=== PATIENT | female | born 1965 | race Caucasian/White ===

== ENCOUNTER 2017-08-31 22:25 | Emergency (ER) | payer MEDICARE, MEDICAID ==
[2017-08-31 22:46] VITALS: BP 155/106
[2017-08-31] MEDS ORDERED: fentaNYL 100 MCG/2 ML SDV IVPUSH ONE (23:02)
--- NOTE | 2017-08-31 23:06 | EDM.PDOC ---
ED HPI GENERAL MEDICAL PROBLEM - General Chief Complaint: Abdominal Pain Stated Complaint: LEFT SIDE ABD PAIN Time Seen by Provider: 08/31/17 22:50 Source of Information: Reports: Patient History Limitations: Reports: No Limitations - History of Present Illness INITIAL COMMENTS - FREE TEXT/NARRATIVE: 51-year-old female with a history of gastric bypass surgery, subsequent bowel obstruction one year ago presents with left lower quadrant pain for the past 5 hours. It radiates across the anterior aspect of the abdomen, her back does not hurt. No urinary symptoms, no fevers or chills, no nausea or vomiting but the pain is fairly intense. No diarrhea. Onset: Sudden (Pain started fairly suddenly at around 5 PM, 6 hours ago) Location: Reports: Abdomen Severity: Moderate Improves with: Reports: None Worsens with: Reports: Movement left ABD Pain Score (Numeric/FACES): 7 - Related Data Allergies Allergy/AdvReac Type Severity Reaction Status Date / Time rofecoxib [From Vioxx] Allergy Vomiting Verified 08/31/17 22:43 morphine AdvReac Drowsiness Verified 08/31/17 22:43 Home Meds: Home Meds Albuterol Sulfate [Proair Hfa] 2 puff IH Q6H PRN 05/14/16 [History] Dextroamphetamine/Amphetamine [Adderall Xr 30 mg Capsule] 30 mg PO BID 05/14/16 [History] Fluticasone Propionate [Flonase] 2 spray PARTH DAILY PRN 05/14/16 [History] Gabapentin [Neurontin] 100 mg PO BID 05/14/16 [History] Loratadine [Claritin] 10 mg PO DAILY PRN 05/14/16 [History] Multivitamin with Minerals [Multiple Vitamin] 1 tab PO DAILY 05/14/16 [History] Vitamin B Complex [B Complex] 1 tab PO DAILY 05/14/16 [History] buPROPion [Wellbutrin XL] 300 mg PO DAILY 05/14/16 [History] Past Medical History HEENT History: Reports: Allergic Rhinitis, Impaired Vision, Otitis Media Cardiovascular History: Reports: None Respiratory History: Reports: Asthma Gastrointestinal History: Reports: Bowel Obstruction Genitourinary History: Reports: UTI, Recurrent 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: Polycystic Ovaries, Musculoskeletal History: Reports: Arthritis Neurological History: Reports: None Psychiatric History: Reports: ADD, ADHD, Anxiety, Depression Endocrine/Metabolic History: Reports: Obesity/BMI 30+ Other Endocrine/Metabolic History: PT STATES SHE IS BORDERLINE DIABETIC Hematologic History: Reports: B12 Deficiency Immunologic History: Reports: None Oncologic (Cancer) History: Reports: None Dermatologic History: Reports: None Other Dermatologic History: 2 SKIN LESIONS ON BACK - Infectious Disease History Infectious Disease History: Reports: Chicken Pox - Past Surgical History HEENT Surgical History: Reports: Myringotomy w Tube(s) Cardiovascular Surgical History: Reports: None GI Surgical History: Reports: Appendectomy, Bariatric Procedure, Cholecystectomy , Colonoscopy, EGD, Hernia Repair/Other, Lysis of Adhesions Female Surgical History: Reports: Hysterectomy, Oophorectomy, Salpingo- Oophorectomy Neurological Surgical History: Reports: Lumbar Spine Musculoskeletal Surgical History: Reports: Shoulder Surgery Oncologic Surgical History: Reports: None Social & Family History - Family History Family Medical History: Noncontributory - Tobacco Use Smoking Status *Q: Never Smoker - Caffeine Use Caffeine Use: Reports: Soda, Tea - Recreational Drug Use Recreational Drug Use: No ED ROS GENERAL - Review of Systems Review Of Systems: See Below Constitutional: Denies: Fever, Chills Respiratory: Denies: Shortness of Breath Cardiovascular: Denies: Chest Pain GI/Abdominal: Reports: Abdominal Pain. Denies: Diarrhea, Nausea, Vomiting : Reports: No Symptoms Skin: Reports: No Symptoms Neurological: Reports: No Symptoms. Denies: Headache ED EXAM, GI/ABD - Physical Exam Exam: See Below Exam Limited By: No Limitations General Appearance: Alert, Moderate Distress (Patient is fairly uncomfortable, unable to sit still) Eyes: Bilateral: Normal Appearance (No jaundice) Respiratory/Chest: No Respiratory Distress, Lungs Clear Cardiovascular: Regular Rate, Rhythm GI/Abdominal Exam: Soft, Tender (Reacts with fairly significant tenderness to palpation along the left and lower abdomen) Neurological: Alert Skin Exam: Warm, Dry Course - Vital Signs Last Recorded V/S: Last Vital Signs Temp 98.7 F 08/31/17 22:53 Pulse 86 08/31/17 22:53 Resp 18 08/31/17 22:53 BP 155/106 H 08/31/17 22:53 Pulse Ox 95 08/31/17 22:53 - Orders/Labs/Meds Orders: Active Orders 24 hr Category Date Time Status Abdomen Pelvis w Cont [CT] Stat Exams 09/01/17 00:01 Taken UA W/MICROSCOPIC [URIN] Urgent Lab 08/31/17 23:00 Ordered Labs: Laboratory Tests 08/31/17 08/31/17 08/31/17 Range/Units 23:00 23:15 23:15 WBC 5.3 (4.5-11.0) K/uL RBC 4.28 (3.30-5.50) M/uL Hgb 12.0 (12.0-15.0) g/dL Hct 37.9 (36.0-48.0) % MCV 89 (80-98) fL MCH 28 (27-31) pg MCHC 32 (32-36) % Plt Count 330 (150-400) K/uL Neut % (Auto) 62 (36-66) % Lymph % (Auto) 29 (24-44) % [place] % (Auto) 8 H (2-6) % Eos % (Auto) 1 L (2-4) % Baso % (Auto) 0 (0-1) % Sodium 140 (140-148) mmol/L Potassium 4.0 (3.6-5.2) mmol/L Chloride 104 (100-108) mmol/L Carbon Dioxide 24 (21-32) mmol/L Anion Gap 11.7 (5.0-14.0) mmol/L BUN 13 (7-18) mg/dL Creatinine 0.8 (0.6-1.0) mg/dL Est Cr Clr Drug Dosing 65.80 mL/min Estimated GFR (MDRD) > 60 (>60) Glucose 90 (74-106) mg/dL Calcium 8.3 L (8.5-10.1) mg/dL Lipase 116 (73-393) U/L Urine Color Yellow Urine Appearance Clear Urine pH 6.0 (4.5-8.0) Ur Specific [place] 1.010 (1.008-1.030) Urine Protein Negative (NEGATIVE) mg/dL Urine Glucose (UA) Normal (NEGATIVE) mg/dL Urine Ketones Negative (NEGATIVE) mg/dL Urine Occult Blood Negative (NEGATIVE) Urine Nitrite Negative (NEGATIVE) Urine Bilirubin Negative (NEGATIVE) Urine Urobilinogen Normal (NORMAL) mg/dL Ur Leukocyte Esterase Moderate (NEGATIVE) Urine RBC 0-5 (0-5) Urine WBC 0-5 (0-5) Ur Epithelial Cells Rare Amorphous Sediment Not seen Urine Bacteria Few Urine Mucus Not seen Meds: Medications Discontinued Medications Generic Name Dose Route Start Last Admin Trade Name Estephania PRN Reason Stop Dose Admin Fentanyl 25 mcg 08/31/17 23:02 08/31/17 23:15 Sublimaze IVPUSH 08/31/17 23:03 25 mcg ONETIME ONE Administration Fentanyl 25 mcg 09/01/17 00:47 09/01/17 00:50 Sublimaze IVPUSH 09/01/17 00:48 25 mcg ONETIME ONE Administration Sodium Chloride 1,000 mls @ 500 mls/hr 08/31/17 23:15 08/31/17 23:20 Normal Saline IV 500 mls/hr ASDIRECTED ABIGAIL Administration Sodium Chloride 82 mls @ 4 mls/sec 09/01/17 00:01 09/01/17 00:09 Normal Saline IV 09/01/17 00:02 4 mls/sec ASDIRECTED STA Administration Iopamidol 140 ml 09/01/17 00:00 09/01/17 00:09 Isovue-300 (61%) IV 09/01/17 00:01 150 ml . DIRECTED STA Administration - Re-Assessments/Exams Free Text/Narrative Re-Assessment/Exam: 08/31/17 23:05 An IV was started, patient was hydrated with normal saline and given 25 g of fentanyl IV. CBC, CMP and lipase were obtained, a CT the abdomen will likely be needed. 09/01/17 00:33 Labs were all normal. The fentanyl helped somewhat with her pain, a CT the abdomen and pelvis was then obtained with IV contrast. 09/01/17 00:39 CT scan showed constipation and intracolonic care but no acute obstruction or inflammatory changes. She was given 1 more 25 g dose of fentanyl and encouraged to increase water intake and consider several doses of MiraLAX over the next 2 days. Departure - Departure Time of Disposition: 01:06 Disposition: Home, Self-Care 01 Condition: Good Clinical Impression: Abdominal pain Qualifiers: Abdominal location: left lower quadrant Qualified Code(s): R10.32 - Left lower quadrant pain Constipation Qualifiers: Constipation type: slow transit constipation Qualified Code(s): K59.01 - Slow transit constipation - Discharge Information Instructions: Constipation, Adult Referrals: PCP,None [Primary Care Provider] - Forms: ED Department Discharge Care Plan Goals: Drink lots of water, try several doses of MiraLAX over the next 1-2 days and advance diet as tolerated. Staying active is also beneficial. Return anytime if worsening, especially increased pain or fever. - My Orders Last 24 Hours: My Active Orders 08/31/17 23:00 UA W/MICROSCOPIC [URIN] Urgent 09/01/17 00:01 Abdomen Pelvis w Cont [CT] Stat - Assessment/Plan Last 24 Hours: My Active Orders 08/31/17 23:00 UA W/MICROSCOPIC [URIN] Urgent 09/01/17 00:01 Abdomen Pelvis w Cont [CT] Stat
[2017-08-31] MEDS ORDERED: Sodium Chloride 0.9% 1,000 ML IV SCH (23:15)
[2017-09-01] MEDS ORDERED: Iopamidol 612 MG/ML 150 ML Bottle IV STA
[2017-09-01] MEDS ORDERED: fentaNYL 100 MCG/2 ML SDV IVPUSH ONE (00:47)
== END 2017-09-01 01:09 | disposition home or self-care (01) ==
LOC: JP.ED 22:25
DX: K59.01 Slow transit constipation (principal); E66.9 Obesity, unspecified; Z88.5 Allergy status to narcotic agent; Z88.8 Allergy status to other drugs, medicaments and biological substances; Z79.899 Other long term (current) drug therapy
CPT/HCPCS: 36415; 74177; 80048; 81001; 83690; 85025; 96361; 96374; 99284-25; J3010; J7030; J7040

== ENCOUNTER 2020-02-17 16:39 | Emergency (ER) | payer MEDICARE, MEDICAID ==
[2020-02-17] MEDS ORDERED: HYDROmorphone 0.5 MG/0.5 ML Syringe IVPUSH ONE (17:27)
[2020-02-17] MEDS ORDERED: Sodium Chloride 0.9% 1,000 ML IV SCH (17:30)
--- NOTE | 2020-02-17 17:40 | EDM.PDOC ---
<Sean Agee - Last Filed: 02/17/20 17:54> ED HPI GENERAL MEDICAL PROBLEM - General Chief Complaint: Abdominal Pain Stated Complaint: STOMACH PAIN Time Seen by Provider: 02/17/20 17:20 Source of Information: Reports: Patient History Limitations: Reports: No Limitations - History of Present Illness INITIAL COMMENTS - FREE TEXT/NARRATIVE: 54-year-old female with a history of gastric bypass has had 1 episode of a small bowel obstruction in the past and she is having similar symptoms. She was evaluated in [place] yesterday, a 2 view abdominal x-ray showed loops of small bowel and air-fluid levels in the CT was recommended but not done. Pain is persistent so she came in to be checked. No fevers or chills. Nausea but no vomiting. Symptoms started 3 days ago with diarrhea, she now feels her abdomen is distended. Onset: Gradual Duration: Day(s): Location: Reports: Abdomen, Back Associated Symptoms: Reports: Loss of Appetite, Malaise. Denies: Confusion, Chest Pain, Cough, Shortness of Breath - Related Data Allergies Allergy/AdvReac Type Severity Reaction Status Date / Time rofecoxib [From Vioxx] Allergy Vomiting Verified 02/17/20 17:03 Home Meds: Home Meds Albuterol Sulfate [Proair Hfa] 2 puff IH Q6H PRN 05/14/16 [History] Dextroamphetamine/Amphetamine [Adderall Xr 30 mg Capsule] 30 mg PO BID 05/14/16 [History] Fluticasone Propionate [Flonase] 2 spray PARTH DAILY PRN 05/14/16 [History] Gabapentin [Neurontin] 100 mg PO BID 05/14/16 [History] Loratadine [Claritin] 10 mg PO DAILY PRN 05/14/16 [History] Multivitamin with Minerals [Multiple Vitamin] 1 tab PO DAILY 05/14/16 [History] Vitamin B Complex [B Complex] 1 tab PO DAILY 05/14/16 [History] buPROPion [Wellbutrin XL] 300 mg PO DAILY 05/14/16 [History] LORazepam [Lorazepam] 1 tab PO TID PRN 02/17/20 [History] Morphine [MS Contin] 1 tab PO BID 02/17/20 [History] Ondansetron [Ondansetron ODT] 1 tab PO TID PRN 02/17/20 [History] Sulfamethoxazole/Trimethoprim [Sulfamethoxazole-Tmp Ds Tablet] 1 tab PO DAILY 02/17/20 [History] oxyCODONE 1 tab PO QID 02/17/20 [History] valACYclovir HCl [Valtrex] 1 tab PO DAILY 02/17/20 [History] Past Medical History HEENT History: Reports: Allergic Rhinitis, Impaired Vision, Otitis Media Cardiovascular History: Reports: None Respiratory History: Reports: Asthma Gastrointestinal History: Reports: Bowel Obstruction Genitourinary History: Reports: UTI, Recurrent 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: Polycystic Ovaries, Musculoskeletal History: Reports: Arthritis Neurological History: Reports: None Psychiatric History: Reports: ADD, ADHD, Anxiety, Depression Endocrine/Metabolic History: Reports: Obesity/BMI 30+ Other Endocrine/Metabolic History: PT STATES SHE IS BORDERLINE DIABETIC Hematologic History: Reports: B12 Deficiency Immunologic History: Reports: None Oncologic (Cancer) History: Reports: None Dermatologic History: Reports: None Other Dermatologic History: 2 SKIN LESIONS ON BACK - Infectious Disease History Infectious Disease History: Reports: Chicken Pox - Past Surgical History Head Surgeries/Procedures: Reports: None HEENT Surgical History: Reports: Myringotomy w Tube(s) Cardiovascular Surgical History: Reports: None GI Surgical History: Reports: Appendectomy, Bariatric Procedure, Cholecystectomy, Colonoscopy, EGD, Hernia Repair/Other, Lysis of Adhesions Female Surgical History: Reports: Hysterectomy, Oophorectomy, Salpingo-Oophorectomy Neurological Surgical History: Reports: Lumbar Spine Musculoskeletal Surgical History: Reports: Shoulder Surgery Oncologic Surgical History: Reports: None Social & Family History - Family History Family Medical History: Noncontributory - Tobacco Use Tobacco Use Status *Q: Never Tobacco User - Caffeine Use Caffeine Use: Reports: Soda, Tea ED ROS GENERAL - Review of Systems Review Of Systems: See Below Constitutional: Reports: Malaise. Denies: Fever, Chills HEENT: Reports: No Symptoms Respiratory: Denies: Shortness of Breath Cardiovascular: Denies: Chest Pain GI/Abdominal: Reports: Abdominal Pain, Diarrhea, Nausea. Denies: Constipation, Vomiting Musculoskeletal: Reports: Back Pain (Chronic and stable) Skin: Reports: No Symptoms Neurological: Reports: No Symptoms Psychiatric: Reports: Anxiety ED EXAM, GI/ABD - Physical Exam Exam: See Below Exam Limited By: No Limitations General Appearance: Alert, No Apparent Distress, Other (Looks somewhat uncomfortable but not distressed) Eyes: Bilateral: Normal Appearance (No jaundice, normal hydration) Head: Atraumatic Respiratory/Chest: No Respiratory Distress, Lungs Clear Cardiovascular: Normal Peripheral Pulses, Regular Rate, Rhythm. No: Tachycardia GI/Abdominal Exam: Normal Bowel Sounds, Soft, Tender (Does react with tenderness with mild guarding especially palpating the central and upper abdomen) Extremities: No: Pedal Edema Neurological: Alert, Oriented Psychiatric: Normal Affect, Normal Mood Skin Exam: Warm, Dry Course - Re-Assessments/Exams Free Text/Narrative Re-Assessment/Exam: 02/17/20 17:43 Reviewed records from yesterday, labs were not repeated. She obviously needs an abdominal CT scan. IV was placed, patient was given 0.5 mg of IV Dilaudid and normal saline started. 02/17/20 17:54 Patient also needed 4 mg of IV Zofran for nausea. Using the labs that were drawn yesterday, patient will get an abdomen pelvis CT with IV enhanced contrast. Care was turned over to Dr. Cardenas pending result. Departure - Departure Disposition: Home, Self-Care 01 Clinical Impression: Functional constipation - Discharge Information Instructions: Constipation, Adult Referrals: PCP,None [Primary Care Provider] - Forms: ED Department Discharge Additional Instructions: Try MiraLAX over the next couple days until loose stool please followup with your primary care provider in 3-5 days if not better, please call return to the emergency department with worsening of symptoms., Sepsis Event Note (ED) - Evaluation Sepsis Screening Result: No Definite Risk <Arash Cardenas - Last Filed: 02/17/20 19:19> Course - Vital Signs Last Recorded V/S: Last Vital Signs Temp 96.4 F L 02/17/20 17:19 Pulse 69 02/17/20 18:26 Resp 16 02/17/20 17:19 BP 134/86 02/17/20 18:26 Pulse Ox 98 02/17/20 18:26 - Orders/Labs/Meds Orders: Active Orders 24 hr Category Date Time Status Iopamidol [Isovue-300 (61%)] Med 02/17/20 18:15 Active 100 ml IV . DIRECTED Sodium Chloride 0.9% [Normal Saline] 1,000 ml Med 02/17/20 17:30 Active IV ASDIRECTED Sodium Chloride 0.9% [Normal Saline] 80 ml Med 02/17/20 18:15 Active IV ASDIRECTED Sodium Chloride 0.9% [Saline Flush] Med 02/17/20 18:03 Active 10 ml FLUSH ASDIRECTED PRN Medication Orders Sodium Chloride (Normal Saline) 1,000 mls @ 500 mls/hr IV ASDIRECTED ABIGAIL Last Admin: 02/17/20 17:50 Dose: 500 mls/hr Documented by: MARC Sodium Chloride (Normal Saline) 80 mls @ 3 mls/sec IV ASDIRECTED ABIGAIL Last Admin: 02/17/20 18:28 Dose: 3 mls/sec Documented by: AURE Iopamidol (Isovue-300 (61%)) 100 ml IV . DIRECTED ABIGAIL Last Admin: 02/17/20 18:29 Dose: 100 ml Documented by: AURE Sodium Chloride (Saline Flush) 10 ml FLUSH ASDIRECTED PRN PRN Reason: Keep Vein Open Last Admin: 02/17/20 18:29 Dose: 10 ml Documented by: AURE Meds: Medications Generic Name Dose Route Start Last Admin Trade Name Freq PRN Reason Stop Dose Admin Sodium Chloride 1,000 mls @ 500 mls/hr 02/17/20 17:30 02/17/20 17:50 Normal Saline IV 500 mls/hr ASDIRECTED ABIGAIL Administration Sodium Chloride 80 mls @ 3 mls/sec 02/17/20 18:15 02/17/20 18:28 Normal Saline IV 3 mls/sec ASDIRECTED ABIGAIL Administration Iopamidol 100 ml 02/17/20 18:15 02/17/20 18:29 Isovue-300 (61%) IV 100 ml . DIRECTED ABIGAIL Administration Sodium Chloride 10 ml 02/17/20 18:03 02/17/20 18:29 Saline Flush FLUSH 10 ml ASDIRECTED PRN Administration Keep Vein Open Discontinued Medications Generic Name Dose Route Start Last Admin Trade Name Freq PRN Reason Stop Dose Admin Hydromorphone HCl 0.5 mg 02/17/20 17:27 02/17/20 17:50 Dilaudid IVPUSH 02/17/20 17:28 0.5 mg ONETIME ONE Administration Ondansetron HCl 4 mg 02/17/20 17:46 02/17/20 17:50 Zofran IVPUSH 02/17/20 17:47 4 mg ONETIME ONE Administration Ondansetron HCl Confirm 02/17/20 17:47 Zofran Administered 02/17/20 17:48 Dose 4 mg .ROUTE .STK-MED ONE Departure - Departure Time of Disposition: 19:19 Condition: Fair Sepsis Event Note (ED) - Focused Exam Vital Signs: Vital Signs Temp Pulse Resp BP Pulse Ox 02/17/20 18:26 69 134/86 98 02/17/20 17:19 96.4 F L 80 16 144/88 H 98 02/17/20 17:01 96.4 F L 80 16 144/88 H 98 - My Orders Last 24 Hours: My Active Orders 02/17/20 18:03 Sodium Chloride 0.9% [Saline Flush] 10 ml FLUSH ASDIRECTED PRN 02/17/20 18:15 Iopamidol [Isovue-300 (61%)] 100 ml IV . DIRECTED Sodium Chloride 0.9% [Normal Saline] 80 ml IV ASDIRECTED - Assessment/Plan Last 24 Hours: My Active Orders 02/17/20 18:03 Sodium Chloride 0.9% [Saline Flush] 10 ml FLUSH ASDIRECTED PRN 02/17/20 18:15 Iopamidol [Isovue-300 (61%)] 100 ml IV . DIRECTED Sodium Chloride 0.9% [Normal Saline] 80 ml IV ASDIRECTED Plan: Assessment Acuity = acute Site and laterality = functional constipation Etiology = slow transit time Manifestations = abdominal pain Location of injury = Home Lab values = CT scan describes multiple chronic issues however stool is with moderate amount in the colon Plan I did I did review her CT scan results with her she is okay with going home will continue to follow-up with her primary recommend trying MiraLAX This note was dictated using [employer] voice recognition software please call with any questions on syntax or grammar.
[2020-02-17] MEDS ORDERED: Ondansetron 4 MG/2 ML SDV IVPUSH ONE (17:46)
[2020-02-17] MEDS ORDERED: Ondansetron 4 MG/2 ML SDV ONE (17:47)
[2020-02-17] MEDS ORDERED: Sodium Chloride 0.9% 10 ML Syringe FLUSH PRN (18:03)
[2020-02-17] MEDS ORDERED: Sodium Chloride 0.9% 80 ML IV SCH (18:15)
[2020-02-17] MEDS ORDERED: Iopamidol 612 MG/ML 100 ML Bottle IV SCH (18:15)
[2020-02-17 18:26] VITALS: BP 134/86; PULSE 69
--- NOTE | 2020-02-17 19:02 | CRLCT ---
INDICATION: Abdominal pain. TECHNIQUE: CT of abdomen pelvis performed after IV injection of 100 mL of Isovue-300. COMPARISON: CT abdomen and pelvis 09/01/2017 not available for comparison. FINDINGS: Moderate to marked compression fracture deformities involving T12 through L1 vertebral bodies as well as the T8 and T9 vertebral bodies. Marked osteopenia. Changes of vertebroplasty at L5, L4, L3, L1, T12 and T9. Hemangioma involving T7. Multiple small to large-sized lytic lesions involving the proximal femurs, pelvic bones, and to a lesser extent vertebral bodies. Irregular density involving a few bilateral ribs with associated old fractures. The lytic lesions involving the skeleton range up to 4 cm in size. Primary diagnostic considerations are neoplastic in between lytic metastases and multiple myeloma. Question as to whether there is a known diagnosis. One of the pelvic bone lesions could be sampled for diagnostic purposes if there is not a known diagnosis. Tiny nodule in the lingula nonspecific. Few tiny nodules in the left lower lobe. Bleb right lower lobe. Minimal atelectasis or fibrosis in the lungs. Moderate diffuse fatty infiltration of liver. Cholecystectomy [id number] dilatation of the common bile duct consistent with postcholecystectomy state. Postsurgical changes midline anterior abdominal and pelvic wall. Hysterectomy. Postsurgical changes of esophagojejunostomy gastric bypass surgery. Postsurgical changes involving the left abdominal small bowel. Tiny cyst right kidney. Prominent distention of the urinary bladder. Mild prominence of the renal pelves and ureters likely related to urinary bladder distention. Moderate amount of stool in a redundant and tortuous colon. Moderate gaseous distention of the colon. Moderate elevation right hemidiaphragm. Trace amount of free fluid in the left pelvis posteriorly. Moderate wall thickening involving the distal esophagus. Partial herniation of the esophagogastric anastomosis into the lower chest through the diaphragmatic hiatus. Remainder negative. IMPRESSION: 1. Moderate wall thickening involving the distal most esophagus consistent with mucosal disease could be inflammatory but is indeterminate. Further investigation with upper GI examination or endoscopy could be helpful. 2. Multiple small to moderately large sized lytic lesions throughout the skeleton predominantly involving pelvic bones is indeterminate and raises the suspicion of neoplasm such as metastases or multiple myeloma. Clinical correlation recommended as to whether there is a known diagnosis. 3. Marked osteopenia with multiple moderate to marked thoracic and lumbar vertebral body compression fractures with vertebroplasty at several levels. 4. Few tiny nodules in the left lung. 5. Postsurgical changes in the abdomen pelvis including hysterectomy, cholecystectomy with mild to moderate dilatation the common bile duct, esophagojejunostomy gastric bypass with herniation of the anastomosis of the esophagus and jejunum into the lower chest through the diaphragmatic hiatus. 6. Marked distention of the urinary bladder causing mild dilatation of the ureters and renal pelves without hydronephrosis. 7. Moderate amount of stool in the colon. Please note that all CT scans at this facility use dose modulation, iterative reconstruction, and/or weight-based dosing when appropriate to reduce radiation dose to as low as reasonably achievable. Dictated by Jim Jenkins MD @ Feb 17 2020 6:44PM Signed by Dr. Jim Jenkins @ Feb 17 2020 7:00PM
== END 2020-02-17 19:49 | disposition home or self-care (01) ==
LOC: JP.ED 16:39
DX: K59.04 Chronic idiopathic constipation (principal); J45.909 Unspecified asthma, uncomplicated; F90.9 Attention-deficit hyperactivity disorder, unspecified type; F41.9 Anxiety disorder, unspecified; F32.9 Major depressive disorder, single episode, unspecified; E66.9 Obesity, unspecified; Z68.28 Body mass index [BMI] 28.0-28.9, adult; Z88.8 Allergy status to other drugs, medicaments and biological substances; Z79.899 Other long term (current) drug therapy
CPT/HCPCS: 74177; 96374; 96375; 99284; J1170; J2405; J7030; Q9967